=== PATIENT | female | born 1980 | race Asian ===

== ENCOUNTER 2020-09-11 13:29 | Emergency (ER) | payer OTHER ==
[~2020-09-11] VITALS: Ht 165.1 cm; Wt 50.0 kg
[2020-09-11] MEDS ORDERED: DIPHENHYDRAMINE 50 MG/ML, 1ML IM ONE (14:30)
[2020-09-11] MEDS ORDERED: DIPHENHYDRAMINE 50 MG/ML, 1ML ONE (14:34)
[2020-09-11 14:42] VITALS: BP 110/74
[2020-09-11 14:48] LABS: ALBUMIN 3.5 g/dL (3.4-5.0); ANION GAP 11 mmol/L (5-15); CALCIUM 9.5 mg/dL (8.5-10.1); CHLORIDE 109 mmol/L (98-107)
[2020-09-11 14:56] LABS: CREATININE 0.92 mg/dL (0.55-1.02)
--- NOTE | 2020-09-11 15:12 | NUR ---
VERBAL COACHING OF BREATHING TECHNIQUES UNSUCCESSFUL. PT MEDICATED PER ORDER.
[2020-09-11 16:31] LABS: BASOPHILS % (AUTO) 0 % (0-1); EOSINOPHILS % (AUTO) 0 % (1-7); LYMPHOCYTES % (AUTO) 10 % (22-44); MEAN CORPUSCULAR HEMOGLOBIN 31.9 pg (27.0-34.8); MEAN CORPUSCULAR HGB CONC 33.3 g/dL (32.4-35.8); MEAN PLATELET VOLUME 8.7 fL (7.4-10.4); MONOCYTES % (AUTO) 4 % (2-9); NEUTROPHILS % (AUTO) 86 % (42-75); PLATELET COUNT 330 x10^3/uL (130-400); RED BLOOD COUNT 4.46 x10^6/uL (3.82-5.3); RED CELL DISTRIBUTION WIDTH 12.9 % (9.6-15.2)
[2020-09-11 16:34] LABS: MD NO
== END 2020-09-11 17:15 | disposition home or self-care (01) ==
LOC: ED 17:00
DX: O26.891 Other specified pregnancy related conditions, first trimester (principal); F41.1 Generalized anxiety disorder; R06.02 Shortness of breath; Z3A.01 Less than 8 weeks gestation of pregnancy
CPT/HCPCS: 36415; 80048; 82040; 84443; 84703; 85025; 93005; 96372; 99284; J1200